=== PATIENT | female | born 2000 | race Caucasian/White ===

== ENCOUNTER 2019-05-22 15:52 | Emergency (ER) | payer OTHER, SELFPAY ==
[2019-05-22 16:01] VITALS: BP 117/74; PULSE 66; RESP 17; TEMP 36.7; O2SAT 99; BMI 25.1
--- NOTE | 2019-05-22 17:10 | ED_ITS ---
HPI - Head Injury General Chief complaint: Head Injury Stated complaint: lazaro jumping, thinks she has a concussion Time Seen by Provider: 05/22/19 16:00 Source: patient Mode of arrival: ambulatory Limitations: no limitations History of Present Illness HPI Narrative: Patient presents emergency department complaining that she thinks she got a concussion yesterday while lazaro jumping at [facility]. Patient states that she hit the water with her face, and that afterward, she had a headache. She states she did not lose consciousness. No nausea or vomiting. Patient states she has felt a little more tired since the incident, but that this is improving. She states her headache is also improving. She denies any difficulty with balance or coordination. No numbness or tingling. No motor deficits. No other complaints at this time. Patient states that overall, she feels better than she did yesterday. Review of Systems Constitutional Denies chills, Denies fever(s), Reports headache(s), Denies lethargy and Denies weakness Eyes Denies change in vision, Denies eye discharge, Denies irritation and Denies loss of vision ENT Ears, Nose, Mouth, and Throat: Denies change in voice, Reports headache(s), Denies neck pain and Denies sore throat Cardiovascular Denies chest pain, Denies irregular heart rhythm, Denies lightheadedness, Denies palpitations, Denies dyspnea, Denies dyspnea on exertion and Denies orthopnea Respiratory Denies cough, Denies dyspnea, Denies dyspnea on exertion and Denies wheezing Gastrointestinal Gastrointestinal: Denies abdominal pain, Denies change in bowel habits, Denies diarrhea, Denies nausea and Denies vomiting Genitourinary Denies hematuria, Denies flank pain, Denies urinary incontinence and Denies urinary urgency Musculoskeletal Denies neck pain Integumentary/Breasts Denies pruritus, Denies erythema, Denies rash and Denies wounds Neurologic Denies confusion, Reports headache(s), Denies loss of vision and Denies weakness Psychiatric Denies anxiety, Denies confusion, Denies depression, Denies homicidal ideation and Denies suicidal ideation Endocrine Denies palpitations Hematologic/Lymphatic Denies easy bruising Allergic/Immunologic Denies wheezing [facility] Medical History Healthy adult (Acute) Surgical History No pertinent past surgical history (Acute) Social History Smoking Status: Never smoker Social History Smoking Status: Never smoker Exam Initial Vital Signs Initial Vital Signs: Vital Signs Temperature 98.0 F 05/22/19 16:01 Pulse Rate 66 05/22/19 16:01 Respiratory Rate 17 05/22/19 16:01 Blood Pressure 117/74 05/22/19 16:01 Pulse Oximetry 99 05/22/19 16:01 Const General: cooperative and well developed Nutritional Appearance: well nourished Orientation: alert, awake, oriented x3 and not confused HENMT Head: normocephalic and atraumatic Ears: external ears normal Nose: external nose normal and No nasal discharge Face and sinus: sinuses nontender, face symmetric, no sinus tenderness and No dry mucous membranes Mouth: oral mucosae normal and moist mucous membranes Teeth and gingiva: dentition normal Eyes General: appearance normal, both eyes and all related structures Eyelids: eyelids normal Conjunctivae: conjunctivae normal Sclera: sclerae normal Pupils: PERRL EOM: EOM intact bilaterally Neck Neck: normal visual inspection, trachea midline, No lymphadenopathy, No midline deformity and No JVD Lymphatic: No lymphedema Chest Chest: normal inspection of the chest Resp Effort & Inspection: normal respiratory effort, able to speak in complete sentences, no respiratory distress and no use of accessory muscles Auscultation: clear to auscultation bilaterally, no rales, no rhonchi and no wheezes Cardio Rate: regular rate Rhythm: regular rhythm Heart Sounds: no click, no gallops, no murmurs and no rubs Pulses: normal peripheral pulses GI Inspection: non-distended Palpation: soft, no hepatosplenomegaly, No guarding, No pulsatile mass and No tender Auscultation: normal bowel sounds Back/Spine/Pelvis Back: No CVA tenderness Cervical Spine: cervical ROM normal and No pain with cervical ROM Thoracic/Lumbar Spine: thoracic and lumbar spine normal to inspection Skin General: no rashes or lesions noted, No jaundice and No petechiae Neuro General: alert, oriented x3, gait normal and no focal motor deficits Speech: speech normal Extrem General: full ROM, no clubbing, cyanosis or edema, no pedal edema and no calf tenderness Psych Appearance: well kempt Mental Status: mental status grossly normal Attitude: cooperative Thought Content: normal and suicidality Judgment: judgment good Course Course Narrative: The patient was very well-appearing in the emergency department, and overall, her symptoms were improving. Symptoms had been minor to begin with. I discussed with the patient that she may have had a minor concussion, and we have discussed the self limited nature of this condition. We have also discussed the expected symptoms and duration. I do not feel that CT imaging is indicated at this time. We have discussed symptomatic management home, as well as the usual indications for return. We have discussed avoidance of activities over the next month that pose a high risk of repeat head injury. Vital Signs - 8 hr 05/22/19 16:01 Temperature 98.0 F Pulse Rate 66 Respiratory Rate 17 Blood Pressure 117/74 Pulse Oximetry 99 MDM - Head Injury Medical Records Attestation: I reviewed the patient's medical records. Discharge Plan Departure Patient Disposition: Home Clinical Impression: Concussion without loss of consciousness Qualifiers: Encounter type: initial encounter Qualified Code(s): S06.0X0A - Concussion without loss of consciousness, initial encounter Instructions: DI for Concussion Referrals: [facility] [Provider Group]
[2019-05-22 17:15] VITALS: BP 104/67; PULSE 49; O2SAT 100
== END 2019-05-22 17:16 | disposition home or self-care (01) ==
PROVIDERS: Emergency Provider Emergency Medicine
DX: S06.0X0A Concussion without loss of consciousness, initial encounter (principal); W17.89XA Other fall from one level to another, initial encounter
CPT/HCPCS: 99282